=== PATIENT | female | born 1965 | race Two or more races ===

== ENCOUNTER → 2019-11-29 | Emergency (ER) | payer SELFPAY ==
[~2019-11-29] VITALS: Ht 170.2 cm; Wt 75.0 kg
[2019-11-29 07:13] VITALS: BP 138/70
== END | disposition home or self-care (01) ==
LOC: ER 07:04
DX: R05 Cough (principal); R06.02 Shortness of breath; R51 Headache; R19.7 Diarrhea, unspecified; R68.83 Chills (without fever); Z20.828 Contact with and (suspected) exposure to other viral communicable diseases; Z90.710 Acquired absence of both cervix and uterus; Z88.2 Allergy status to sulfonamides
CPT/HCPCS: 99283; C9803; U0003